=== PATIENT | male | born 1950 | race Caucasian/White ===

== ENCOUNTER 2025-07-03 16:39 | Inpatient (IN) | payer MEDICARE, BC ==
[~2025-07-03] VITALS: Ht 188 cm; Wt 67.0 kg
--- NOTE | 2025-07-03 16:55 | ELECTROCARDIOGRAPH REPORT ---
[facility] Test Date: 2025-07-03 Test Time: 16:46:23 Pat Name: ESPERANZA WAITE Department: EMERGENCY ROOM Room: Gender: M Craft Recruiter: : [id number] Requested By: JOB ESPANA Order Number: [id number] Reading MD: Measurements Intervals [place] Rate: 78 P: 0 AK: 0 QRS: 74 QRSD: 98 T: -64 QT: 374 QTc: 426 Interpretive Statements Atrial fibrillation Probable LVH with secondary repol abnrm Please click the below link to view image of tracing.
[2025-07-03 17:11] LABS: ABG BASE EXCESS -0.9 mmol/L (-2.0-3.0); ABG HCO3 22.6 mmol/L (21.0-28.0); ABG OXYGEN SATURATION 99.2 % (94.0-98.0); ABG PCO2 (T) 31.7 mmHg (35.0-48.0); ABG PH (T) 7.469 (7.350-7.450); ABG PO2 (T) 205.4 mmHg (83.0-108.0); ALLEN'S TEST POSITIVE; FCOHb 0.3 % (0.5-1.5); FHHb 0.8 % (0.0-5.0); FIO2 100.0 mmHg/%; FMetHb 0.3 % (0.0-1.5); FO2Hb 98.6 % (94.0-98.0); MODE MASK - BIPAP; PATIENT TEMPERATURE 36.3; RESPIRATORY RATE 14 b/min; TIDAL VOLUME 775 mL; TOTAL HEMOGLOBIN 8.7 G/dl (13.5-17.5)
[2025-07-03 17:16] VITALS: PULSE 72; RESP 29; O2SAT 99
[2025-07-03] MEDS: CefTRIAXone 2gm/D5W 50ml BAG 50 ML IV ONE (17:25)
--- NOTE | 2025-07-03 17:27 | RADIOLOGY REPORT ---
CHEST RADIOGRAPH Indication: respiratory failure Technique: Single frontal view of the chest was obtained COMPARISON: None FINDINGS: Right sided dialysis line with tip near the cavoatrial junction. Previous sternotomy with valve replacement. Mild bibasilar opacity with trace left-sided pleural effusion. Cardiac silhouette and sotero are within normal limits. Bones and soft tissues demonstrate no significant abnormality. IMPRESSION: Mild bibasilar opacity, nonspecific for pneumonia or aspiration. Trace left-sided mikhail fusion.
[2025-07-03 17:40] LABS: MEAN PLATELET VOLUME 10.2 FL (7.4-10.4); RED CELL DISTRIBUTION WIDTH 16.7 % (11.5-14.5)
[2025-07-03] MEDS ORDERED: NORepinephrine 8mg/ 250ml NS 250 ML IV PRN (17:55)
--- NOTE | 2025-07-03 17:56 | Physician Documentation ---
History of Present Illness ~ Chief Complaint: ALOC Stated Complaint: HYPOTENSION Time Seen by MD: 16:50 HPI 75 year old male sent by [facility]. He is recently s/p open heart surgery with valvular replacement and has been recovering at [facility], recently transferred from [facility]. He is also a dialysis patient with recently placed R chest wall dialysis port. Today he was acutely altered, hypotensive, and hypoxic and placed on CPAP. He has a history of swallowing problems and aspiration. He is responding to commands but not at his mental baseline per his family at the bedside. Medication Reconciliation Allergies: Coded Allergies: iodine (Verified Allergy, Unknown, 07/03/25) Review of Systems All Other Systems at this time: Reviewed and Negative Physical Exam Vital Signs: RN Vital Signs have been reviewed: Yes, Temperature: 97.3, Source: Temporal, Heart Rate: 75, Respiratory Rate: 18, BP: 117/51, Pulse Oximetry: 100, Weight: 67.000 Oxygen Flow Rate: 15.0 Physical Exam HEENT: PERRL, moist oral mucosa, EOMI Pulmonary: No respiratory distress; rhonchi bilaterally Cardiac: RRR, healing midline sternotomy scar GI: nondistended, soft, nontender, no guarding, no rebound MSK: no deformity Skin: pale, cool Neuro: somnolent but arousable Progress Results/Orders Results/Orders Orders - JOB ESPANA MD Cbc/Diff (07/03/25 16:50) CMP (07/03/25 16:50) Lacticsepsis (07/03/25 16:50) Urinalysis, Cult If Indicated (07/03/25 16:50) Chest,Single View (07/03/25 17:10) Abg (Arterial Blood Gas) (07/03/25 16:50) Bipap/Cpap (07/03/25 ) Completed Orders - JOB ESPANA MD Chest,Single View (07/03/25 17:10) Electrocardiogram (07/03/25 16:46) Ceftriaxone 2gm/D5w 50ml Bag (Rocephin 2 (07/03/25 17:15) Medications Received in ER Medications (Trade) Dose Ordered Sig/Alissa Route PRN Reason Start Time Stop Time Status Last Admin Dose Admin Ceftriaxone Sodium/Dextrose 50 ml @ 100 mls/hr ONCE ONCE IV 07/03/25 17:15 10/8/25 17:44 DC 07/03/25 17:25 100 MLS/HR Vital Signs 07/03/25 07/03/25 07/03/25 16:44 17:16 17:19 Temp 97.3 Pulse 75 72 75 Resp 28 29 18 29 B/P (MAP) 96/53 117/51 (73) Pulse Ox 95 99 100 O2 Flow Rate 15.0 FiO2 100 Laboratory Tests Test 07/03/25 17:05 07/03/25 17:24 Blood Gas Specimen Type Arterial Blood Gas Puncture Site Lr O2 Saturation 99.2 H Arterial Blood pH (Temp corrected) 7.469 H Arterial Blood pCO2 (Temp correct) 31.7 L Arterial Blood pO2 (Temp corrected) 205.4 H Arterial Blood PO2/FiO2 Ratio 2.09 Arterial Blood HCO3 22.6 Arterial Blood Base Excess -0.9 Arterial Blood Oxyhemoglobin 98.6 H Arterial Blood Carboxyhemoglobin 0.3 L Arterial Blood Methemoglobin 0.3 Arterial Blood Deoxyhemoglobin 0.8 Quentin Test Positive Blood Gas Hemoglobin 8.7 L Blood Gas Temperature 36.3 Blood Gas Set Respiration Rate 14 Blood Gas Modality Mask - bipap FiO2 100.0 Blood Gas Tidal Volume 775 CBC Comment Chemistry Comments EKG/XRAY/CT/US/VASC/MRI EKG : Indication: ALOC/confusion EKG Rate: 78 EKG: a fib Additional Comment my interpretation: atrial fibrillation with no STEMI criteria, no other dysrhythmia. Medical Decision Making Findings 75 year old male with hypoxia and hypotension, on CPAP by EMS. On arrival we placed him on Bipap. Spoke with family and they are currently at the bedside communicating with the patient to determine if he still wants to be DNR. He had difficulty being weaned off the ventilator after his surgery. His workup was consistent with sepsis from an EKG interpreted by me which demonstrated aspiration pneumonia vs. pneumonitis, no PTX, no cardiomegaly, and he has received antibiotics. Given his kidney failure and recent heart surgery. I have held off on significant fluid boluses. I will sign him over to the oncoming ER physician for continued management and disposition. This patient has required 60 minutes of critical care time apart from separately billable procedures for blood gas interpretation, consultation with specialists, frequent reassessment, fluid resuscitation, and blood pressure management with pressors. Differential Dx:Considerations: Include: dehydration, Delirium Tr., hypercalcemia, HHNC, hypoglycemia, hypernatremia, hyponatremia, hypoxia, CVA, drug overdose, encephalopathy, ETOH intoxication, medication toxicity, infection - sepsis, infection - UTI, renal failure, respiratory failure Departure Disposition: 30 STILL A PATIENT Impression: Primary Impression: Aspiration pneumonia Additional Impressions: Severe sepsis Respiratory failure Acute metabolic encephalopathy Condition: Critical Referrals: NO PRIMARY CARE PROVIDER (PCP) Education Educated: Family Educated regarding: diagnosis, treatment, prognosis Signature Scribe Signature: . Attestation: . JOB ESPANA MD Jul 03, 2025 17:56
[2025-07-03] MEDS: NORepinephrine 8mg/ 250ml NS 250 ML IV PRN (18:03)
[2025-07-03 18:08] LABS: CREATININE 4.10 MG/DL (0.60-1.10); TOTAL CARBON DIOXIDE 24.0 MMOL/L (24-32); eCRCL 15 ML/MIN; eGFR 14 ML/MIN
[2025-07-03] MEDS: metroNIDAZOLE-Flagyl 500mg/NS 100 ML IV STA (18:16)
[2025-07-03 19:26] LABS: ABG BASE EXCESS 0.3 mmol/L (-2.0-3.0); ABG HCO3 24.7 mmol/L (21.0-28.0); ABG OXYGEN SATURATION 97.6 % (94.0-98.0); ABG PCO2 (T) 38.7 mmHg (35.0-48.0); ABG PH (T) 7.422 (7.350-7.450); ABG PO2 (T) 98.0 mmHg (83.0-108.0); ALLEN'S TEST Modified; FCOHb 0.3 % (0.5-1.5); FHHb 2.4 % (0.0-5.0); FIO2 60.0 mmHg/%; FMetHb 0.1 % (0.0-1.5); FO2Hb 97.2 % (94.0-98.0); MODE MASK - BIPAP; PATIENT TEMPERATURE 36.9; TOTAL HEMOGLOBIN 8.1 G/dl (13.5-17.5)
[2025-07-03 20:09] VITALS: PULSE 75; RESP 18; O2SAT 98
[2025-07-03] MEDS: normal saline 1000ml 1,000 ML IV ONE ×2 (20:28→23:30)
[2025-07-03] MEDS ORDERED: vancomycin inj 1,000 MG in normal saline 250ml IV soln 250 ML IV STA (21:49)
[2025-07-03 21:59] VITALS: PULSE 75; RESP 18; O2SAT 98
[2025-07-03] MEDS ORDERED: RIVA20TA PO (22:04)
[2025-07-03] MEDS ORDERED: LOSA-415 PO (22:04)
[2025-07-03] MEDS ORDERED: ROSU20TA98 PO (22:04)
[2025-07-03] MEDS ORDERED: ESOM40CA PO (22:04)
[2025-07-03] MEDS ORDERED: FURO-150 PO (22:04)
[2025-07-03] MEDS ORDERED: LEVO125C5 PO (22:04)
[2025-07-03] MEDS ORDERED: DILT120C95 PO (22:04)
[2025-07-03] MEDS: metroNIDAZOLE-Flagyl 500mg/NS 100 ML IV ONE (22:10)
[2025-07-03] MEDS: normal saline 1000ML IV soln IVB ONE (22:15)
[2025-07-03] MEDS: atropine sulfate 1% ophthalmic drops SL PRN (22:35)
[2025-07-03] MEDS: vancomycin/NS 1 GM ADD-VANTAGE 250 ML IV STA (22:35)
[2025-07-03] MEDS ORDERED: magnesium Cl slow-release 64mg tablet PO PRN (23:40)
[2025-07-03] MEDS ORDERED: acetaminophen 650mg rectal suppository RC PRN (23:40)
[2025-07-03] MEDS ORDERED: magnesium sulf-water 2g/50mL 50 ML IV PRN (23:40)
[2025-07-03] MEDS ORDERED: potassium Cl 40MEQ/1/2NS 520ml 520 ML IV PRN (23:40)
[2025-07-03] MEDS ORDERED: ondansetron/PF 4mg/2ml inj IV PRN (23:40)
[2025-07-03] MEDS ORDERED: magnesium sulf-water 4G/100mL 100 ML IV PRN (23:40)
[2025-07-03] MEDS ORDERED: potassium Cl 20 mEq SR tablet PO PRN ×2 (23:40)
[2025-07-03] MEDS ORDERED: mag hydrox/Alum hydrox/simeth 30ml oral suspension PO PRN (23:40)
[2025-07-03] MEDS ORDERED: magnesium hydroxide 30ml (MOM) UD suspension PO PRN (23:40)
[2025-07-04] MEDS ORDERED: dextrose 50%-water 50ml dispensing syringe IV PRN ×2 (00:10)
[2025-07-04] MEDS ORDERED: glucagon, human recombinant 1mg kit SUBCUT PRN (00:10)
[2025-07-04] MEDS ORDERED: DEXTROSE 15 GM of carb/4 tabs (each vial/BOTTLE has 4 tablets) PO PRN ×2 (00:10)
--- NOTE | 2025-07-04 00:20 | HISTORY AND PHYSICAL-Residence ---
History & Physical Providers to CC Resident Creating Document: ALVAREZ FITZPATRICK RES ~ History of Present Illness Reason for Admit\Complaint: Hypoxemia, severe sepsis History of Present Illness This is a 75-year-old male patient with multiple comorbidities, including CAD, DM2, recent CABG, chronic hypoxemic respiratory failure, who was transferred from [facility] for altered mental status, lethargy, increasing oxygen requirement, and productive cough. Patient had a recent CABG and bioprosthetic aortic and mitral valve replacement complicated with FRANCIS requiring dialysis, prolonged ventilation, prolonged ICU, and was extubated on 06/15/25. He was sent to [facility] three days ago in stable condition, awake and alert. The patient was in his basal state yesterday, but today he started to develop confusion, drowsiness, shortness of breath, chills, and increased oral secretions. The patient was hypotensive and required Levophed initially. He was treated with IV fluids and antibiotics and sent here for further evaluation and management. After initial resuscitation, the patient is responsive but still disoriented, denies chest pain, gastrointestinal symptoms, or urinary symptoms. I had a long conversation with his regarding goals of care, considering age, multiple comorbidities, prolonged intubation, and end-stage renal disease. Family members wanted him to be treated medically for 12 to 24 hours. In case of no significant clinical response after this period, they might change the patient to comfort care. Allergies: Coded Allergies: iodine (Verified Allergy, Unknown, 07/03/25) Home Medications Home Medications Active Past Medical History Past Medical History Coronary artery disease s/p CABG Mitral and aortic valve replacement Chronic hypoxemic respiratory failure Stroke Atrial fibrillation Homocystinuria Type 2 diabetes mellitus History of DVT Hyperlipidemia Hypertension Past Surgical History Surgical History Comment Cholecystectomy CABG 1 month ago Total knee replacement Past Social History Smoking: Non-Smoker Alcohol Use: None Drug Use: None Lives with: Other Lives In: Assisted Care ROS All Other Systems: Reviewed and Negative Constitutional: Reports: malaise, weakness Eyes: Reports: no symptoms reported ENT: Reports: no symptoms reported Respiratory: Reports: cough, shortness of breath, SOB with exertion, SOB at rest Cardiovascular: Reports: no symptoms reported Gastrointestinal: Reports: abdomen distended, nausea, vomiting Genitourinary: Reports: no symptoms reported Male Genitalia: Reports: no symptoms reported Neurological: Reports: no symptoms reported Musculoskeletal: Reports: no symptoms reported Integumentary: Reports: no symptoms reported Allergic/Immunologic: Reports: no symptoms reported Hematologic/Lymphatic: Reports: no symptoms reported Endocrine: Reports: no symptoms reported Psychiatric: Reports: no symptoms reported Unable to obtain: altered mental status, dementia Exam Vitals: Vital Signs Date Time Temp Pulse Resp B/P (MAP) Pulse Ox O2 Delivery O2 Flow Rate FiO2 07/03/25 23:00 64 19 104/54 (71) 07/03/25 22:45 97 07/03/25 21:59 60 07/03/25 21:05 97.7 07/03/25 19:31 15.0 General: General: Drowsy, somnolent, respiratory distress noted HEENT: Conjunctiva pink, Sclera clear, Mucus Membranes dry Neck: Supple without masses and tenderness. Resp: Tachypnea and accessory muscles use. Diminished air movement, coarse crackles bilaterally, no wheezing. Heart: Irregular Rate and rhythm, normal S1, S2 and also S4 present, 2+/6+ diastolic murmur more audible in the left lower sternal border, no rub or gallop. Abdomen: Nondistended, normal bowel sounds, mildly tender to deep palpation in the epigastric region, no guarding or rebound, no organomegaly Extremities: Trace bilateral lower extremity pitting edema. No cyanosis or clubbing. Left leg scar from graft. Skin: Warm and clammy Neuro: Cranial nerve exam- normal extraocular movements, apparently normal normal facial sensations and facial movements, decreased hearing, uvula in midline Strength- decreased muscle tone, bilateral upper and lower extremity 4/5, Normal deep tendon reflexes, absent Babinski Cerebellar- finger-nose test unable to access Diagnostic Data Last Recorded Lab Results: 07/04/25 0709 07/04/25 0709 Advance Care Planning Advanced Care plannin - 30 Minutes (I had a long conversation with his regarding goals of care, considering age, multiple comorbidities, prolonged intubation, and end-stage renal disease. Family members wanted him to be treated medically for 12 to 24 hours. In case of no significant clinical response after this period, they might change the patient to comfort care.) Additional Plan Assessment 75-year-old male patient with multiple comorbidities transferred from [facility] for hypoxemia, hypotension requiring pressors and productive cough. He was weaned off Levophed and admitted to the medical floor for further management. 1. Acute hypoxemic respiratory failure as a consequence of the following causes 2. Severe sepsis secondary to aspiration pneumonia 3. Acute metabolic encephalopathy Patient presents with productive cough and hypotension requiring Levophed He was in respiratory distress and was treated with BiPAP initially Confusion, disorientation, drowsiness and somnolence started today WBC 14, procalcitonin 18.45, lactic acid 2.6 CXR: Mild bibasilar opacity, nonspecific for pneumonia or aspiration. Trace left-sided mikhail fusion. Plan Patient received 2.5 L of crystalloids and was able to wean off Levophed We will avoid more fluids given ESRD Patient received ceftriaxone, vancomycin and metronidazole in the ER Started on Zosyn renal dose Ordered blood/sputum cultures Ordered chest CT Speech therapy evaluation requested 4. Type 2 myocardial infarction 5. End-stage renal disease 6. CAD s/p CABG 7. Bioprosthetic aortic and mitral valve replacement 8. Congestive heart failure, unknown EF, not on acute exacerbation 9. Persistent atrial fibrillation 10. Type 2 diabetes mellitus Denies chest pain, reports orthopnea and stable trace lower extremity peripheral edema Prolonged ICU stay in [facility] in face of FRANCIS, pneumonia and respiratory failure Troponin 135, possibly demand ischemia BNP > 68328 Cr 4.1, BUN 45 Hemodialysis on Tuesday, and Tuesday, followed by Dr. Lee Plan Continue aspirin, statin and Coumadin, hold metoprolol in the setting of hypotension Continue hemodialysis, will need nephrology consultation Ordered A1c, placed on hyper/hypoglycemia protocol Ordered echocardiogram Continuous telemetry 11. Normocytic hypochromic anemia 12. Severe hypercalcemia 13. Severe malnutrition/hypoalbuminemia Hb 8.1, MCV 92.2, MCHC 31.7 Possibly mixed anemia of chronic disease/kidney impairment Ca 10.5, Albumin 1.9, Ca corrected for albumin 12.2 Malnutrition in the setting of prolonged hospitalization Plan Ordered iron panel Ordered ionized calcium and phosphorus Treated with IV hydration initially Continue erythropoietin Monitor closely 14. History of DVT 15. Hyperlipidemia 16. Hypertension Continue Coumadin Hold antihypertensive medications Continue statin Ordered lipid panel Code Status: DNR DVT prophylaxis: Coumadin Analgesia/sedation: Morphine Line/tube: PIV GI prophylaxis: Pantoprazole Nutrition: NPO Prognosis: Guarded Physical therapy: Ordered Disposition: Admit to PCU/telemetry. Reassess clinical response tomorrow, family might change the patient to comfort care if progressive deterioration. Resident MD attestation The above note has been reviewed and supervised by a senior resident PGY2/PGY3 Patient was seen, examined and discussed with the attending physician Date of Service: Jul 04, 2025 Billing Provider: MOON MANE MD Addendum Attestation I agree with the residents assessment and plan as below: 75 year old admitted with confusion and hypotension Plan: empiric abx for pneumonia follow cultures continue bipap continue goc discussion CCT 54 min using HIPPA compliant A/V technology ALVAREZ FITZPATRICK, RES Jul 04, 2025 00:20 MOON MANE MD Jul 04, 2025 16:30
--- NOTE | 2025-07-04 02:58 | RADIOLOGY REPORT ---
Procedure: CT CT CHEST Reason for study/Clinical History: Respiratory failure Comparison Study: DI CHEST,SINGLE VIEW on DOS: 07/03/25 TECHNIQUE: Multidetector CT of the chest was performed from the lung apices to the upper abdomen without the use of intravenous contract. Axial, coronal and sagittal multiplanar reformats were performed. Radiation Dose Information: CT Dose: CTDI volume is 17.0 mGy. Dose-length product is 670.75 mGy*cm The dose indicators for CT are the volume Computed Tomography (CT) Dose Index (CTDIvol) and the Dose Length Product (DLP), and are measured in units of mGy and mGy-cm, respectively. These indicators are not patient dose, but values generated from the CT scanner acquisition factors. The report includes radiation exposure data for exposures received during this examination. FINDINGS: Lower neck: Unremarkable. Lungs: Dense left lower lobe and posterior right lower lobe parenchymal consolidation consistent with pneumonia. Fine nodular infiltrate extends into the upper lobes where there are more discrete subcentimeter pulmonary nodules bilaterally. Heart/Vascular Structures: Cardiomegaly status post median sternotomy and expected postsurgical changes. No pericardial effusion. Atherosclerotic vascular calcifications. Lymph Nodes: No adenopathy Pleura: No pleural effusion or significant pneumothorax. Musculoskeletal: No acute osseous abnormality. Soft tissues: Normal. Upper abdomen: Multiple bilateral renal cortical cysts. Limited portions of the upper abdomen are unremarkable status post cholecystectomy. IMPRESSION: 1. Dense left lower lobe and posterior right lower lobe parenchymal consolidation, consistent with pneumonia. 2. Fine nodular infiltrate extends into the upper lobes where there are more discrete subcentimeter pulmonary nodules bilaterally. 3. Cardiomegaly status post median sternotomy. Radiation optimization: All CT scans at this facility use at least one of these dose optimization techniques: automated exposure control mA and/or kV adjustment per patient size (includes targeted exams where dose is matched to clinical indication) or iterative reconstruction.
[2025-07-04] MEDS: acetaminophen 1,000mg/100ml IV 100 ML IV ONE (03:13)
[2025-07-04] MEDS: INSULIN LISPRO 100 UNIT/ML INSULN.PEN MULTI-DOSE SQ SCH (07:00)
[2025-07-04 07:19] LABS: MEAN PLATELET VOLUME 9.5 FL (7.4-10.4); RED CELL DISTRIBUTION WIDTH 16.5 % (11.5-14.5)
[2025-07-04] MEDS: pantoprazole 40mg Tablet.DR PO SCH (07:30)
[2025-07-04] MEDS: docusate sod 100mg capsule PO SCH (07:39)
[2025-07-04] MEDS: aspirin 81mg, enteric-coated 1 TAB TABLET.DR PO SCH (07:40)
[2025-07-04] MEDS: ipratropium/albuterol 3ml nebule NEB SCH (07:44)
[2025-07-04 07:45] LABS: % IRON SATURATION 21 % (11-46)
[2025-07-04 07:50] VITALS: PULSE 60; RESP 22; O2SAT 98
[2025-07-04 07:51] VITALS: PULSE 63; RESP 20
[2025-07-04] MEDS: piperacillin/tazo 4.5gm/100ml 100 ML IV SCH (08:00)
[2025-07-04] MEDS ORDERED: warfarin 7.5mg tablet PO SCH (08:00)
[2025-07-04] MEDS: K and/or MAG REPLACEMENT MC SCH (08:00)
[2025-07-04] MEDS ORDERED: heparin, porcine 5000 units/ml vial SQ SCH (08:00)
[2025-07-04 08:04] LABS: INR 5.4 INR
[2025-07-04 08:05] LABS: CREATININE 4.47 MG/DL (0.60-1.10); LDL CHOLESTEROL 19 MG/DL (50-100); PHOSPHORUS 3.3 MG/DL (2.3-4.5); TOTAL CARBON DIOXIDE 25.2 MMOL/L (24-32); eCRCL 14 ML/MIN; eGFR 13 ML/MIN
[2025-07-04 08:22] LABS: CHOL/HDL RATIO 6.6 (0.00-4.99)
[2025-07-04] MEDS: morphine 4 MG/ML inj SYRINge IV PRN (09:55)
[2025-07-04] MEDS ORDERED: diazepam inj 5 MG/ML inj. IV PRN (10:00)
[2025-07-04] MEDS: scopolamine 1MG/72H patch 1 PATCH PATCH.TD.3 TD SCH (10:21)
--- NOTE | 2025-07-04 10:58 | PROGRESS NOTE- Residence ---
Progress Note - Resident Providers to CC Resident Creating Document: BLANCO DEAN RES ~ Antibiotic Timeout Antibiotic Ordered?: No Subjective The patient is a 75-year-old male with a history of coronary artery disease, type 2 diabetes mellitus, chronic hypoxemic respiratory failure, and a recent CABG with bioprosthetic aortic and mitral valve replacements, complicated by acute kidney injury requiring dialysis, prolonged ventilation, and a prolonged ICU stay in the outside facility. He was extubated on June 15, 2025 and discharged to [facility] in stable conditions three days ago. He was reportedly in his usual state of health until the day of admission, when he developed confusion, lethargy, shortness of breath, chills, and increased oral secretions. Upon arrival, he had been on vasopressors of support. He was treated with IV fluids, antibiotics, and supplemental oxygen, after which he became relatively stable but remained disoriented and clinically fragile. Given his multiple comorbidities, recent complicated hospital course (at outside facility), and poor overall prognosis, a lengthy goal of care meeting was held with the his (Lynn), son (Kishore Menchaca), and daughter (Ludmila Sharpe). The family initiated the discussion of comfort care. After discussing the extent of his illness, and focus on quality of life, the family expressed understanding and agreed to transition the patient to comfort care. The principles and components of comfort care, including discontinuation of life-prolonging interventions, symptoms relieves with morphine for pain, scopolamine for secretion control, and Ativan as needed for agitation were explained in details. The family verbalized understanding and wished to prioritize comfort and dignity at the end of life. The patient's code status was updated to DNR/comfort measures only, and the plan of care was shifted accordingly. Objective Vital Signs Date Time Temp Pulse Resp B/P (MAP) Pulse Ox O2 Delivery O2 Flow Rate FiO2 07/04/25 09:55 18 07/04/25 07:51 63 Nasal Cannula 5.0 07/04/25 07:50 98 40 07/04/25 06:15 07/04/25 06:15 97.7 General: On Alimta and obtunded Resp: Tachypnea and accessory muscles use. Diminished air movement, coarse crackles bilaterally, no wheezing. Heart: Irregular Rate and rhythm, normal S1, S2 and also S4 present, 2+/6+ diastolic murmur more audible in the left lower sternal border, no rub or gallop. Abdomen: Nondistended, normal bowel sounds, mildly tender to deep palpation in the epigastric region, no guarding or rebound, no organomegaly Extremities: Trace bilateral lower extremity pitting edema. No cyanosis or clubbing. Left leg scar from graft. Skin: Warm and clammy Result Diagram: 07/04/25 0709 07/04/25 0709 Coagulation Studies Laboratory Tests Test 07/04/25 07:09 Prothrombin Time 46.7 SECONDS (9.0-12.0) H INR International Normalized Ratio 5.4 INR *H Coagulation Comments Advance Care Planning Advanced Care plannin - 30 Minutes Assessment Assessment Disposition: The patient is a 75-year-old male with a history of coronary artery disease, type 2 diabetes mellitus, chronic hypoxemic respiratory failure, and a recent CABG with bioprosthetic aortic and mitral valve replacements, complicated by acute kidney injury requiring dialysis, prolonged ventilation, and a prolonged ICU stay in the outside facility. He was extubated on June 15, 2025 and discharged to [facility] in stable conditions three days ago. He was reportedly in his usual state of health until the day of admission, when he developed confusion, lethargy, shortness of breath, chills, and increased oral secretions. Upon arrival, he had been on vasopressors of support. He was treated with IV fluids, antibiotics, and supplemental oxygen, after which he became relatively stable but remained disoriented and clinically fragile. Given his multiple comorbidities, recent complicated hospital course (at outside facility), and poor overall prognosis, a lengthy goal of care meeting was held with the his (Lynn), son (Kishore Menchaca), and daughter (Ludmila Sharpe). The family initiated the discussion of comfort care. After discussing the extent of his illness, and focus on quality of life, the family expressed understanding and agreed to transition the patient to comfort care. The principles and components of comfort care, including discontinuation of life-prolonging interventions, symptoms relieves with morphine for pain, scopolamine for secretion control, and Ativan as needed for agitation were explained in details. The family verbalized understanding and wished to prioritize comfort and dignity at the end of life. The patient's code status was updated to DNR/comfort measures only, and the plan of care was shifted accordingly. [facility] Resident, PGY-3 Date of Service: Jul 04, 2025 Billing Provider: LAURA ARNOLD MD,BLANCO, RES Jul 04, 2025 10:58
[2025-07-04 13:40] VITALS: BP 89/55; PULSE 70; RESP 24; TEMP 98; O2SAT 70
[2025-07-04 13:57] VITALS: RESP 22
--- NOTE | 2025-07-06 07:42 | DISCHARGE SUMMARY-Residence ---
Discharge Summary Providers to CC Resident Creating Document: BLANCO DEANDANIEL ~ Discharge Summary Admission Diagnosis: Severe sepsis, Acute hypoxemic respiratory failure Hospital Course DATE OF ADMISSION: July 03, 2025 DATE OF DISCHARGE: July 04, 2025 Discharge Diagnosis\Comment: 1. Acute hypoxemic respiratory failure as a consequence of the following causes 2. Severe sepsis (POA) secondary to aspiration pneumonia 3. Acute metabolic encephalopathy 4. Type 2 myocardial infarction 5. End-stage renal disease 6. CAD s/p CABG 7. Bioprosthetic aortic and mitral valve replacement 8. Congestive heart failure, unknown EF, not in acute exacerbation 9. Persistent atrial fibrillation 10. Type 2 diabetes mellitus 11. Normocytic hypochromic anemia 12. Severe hypercalcemia 13. Severe malnutrition/hypoalbuminemia 14. History of DVT 15. Hyperlipidemia 16. Hypertension Operations\Procedures: None Consultants: None Complications: None Condition on DC: Discharge Summary: Late Entry Discharge Summary for 07/04/2025: The patient is a 75-year-old male with a history of coronary artery disease, type 2 diabetes mellitus, chronic hypoxemic respiratory failure, and a recent CABG with bioprosthetic aortic and mitral valve replacements, complicated by acute kidney injury requiring dialysis, prolonged ventilation, and a prolonged ICU stay in the outside facility. He was extubated on June 15, 2025 and discharged to [facility] in stable conditions three days ago. He was reportedly in his usual state of health until the day of admission, when he developed confusion, lethargy, shortness of breath, chills, and increased oral secretions. Upon arrival, he had been on vasopressors of support. He was treated with IV fluids, antibiotics, and supplemental oxygen, after which he became relatively stable but remained disoriented and clinically fragile. Given his multiple comorbidities, recent complicated hospital course (at outside facility), and poor overall prognosis, a lengthy goal of care meeting was held with the his (Lynn), son (Kishore Menchaca), and daughter (Ludmila Sharpe). The family initiated the discussion of comfort care. After discussing the extent of his illness, and focus on quality of life, the family expressed understanding and agreed to transition the patient to comfort care. The principles and components of comfort care, including discontinuation of life-prolonging interventions, symptoms relieves with morphine for pain, scopolamine for secretion control, and Ativan as needed for agitation were explained in details. The family verbalized understanding and wished to prioritize comfort and dignity at the end of life. The patient's code status was updated to DNR/comfort measures only, and the plan of care was shifted accordingly. Subsequently, he on 07/04/25 at 1623. *Problems/Diagnosis: (1) Aspiration pneumonia Status: Acute (2) Respiratory failure Status: Acute (3) Severe sepsis Status: Acute Total Time Spent on D/C: Up to 30 Minutes Date of Service: Jul 04, 2025 Billing Provider: LAURA ARNOLD MD Common Visit Codes: 66154-XVJ/OBS DISCH DAY >30min Secondary Visit Codes: 79719-ERCNOPRU CARE PLAN 30 MINUTES BLANCO DEAN, RES Jul 06, 2025 07:42 LAURA ARNOLD MD Jul 07, 2025 07:34
== END 2025-07-04 21:30 | DRG 871 ==
LOC: ER 16:39 → ED HOLD 23:46 → EDBEDREQDT 07-04 02:09 → EDBEDREQTM 07-04 02:09 → SUR 3N 07-04 13:10
PROVIDERS: ADMIT Internal Medicine; ATTEND Internal Medicine
DX: A41.9 Sepsis, unspecified organism (principal); E43 Unspecified severe protein-calorie malnutrition; J69.0 Pneumonitis due to inhalation of food and vomit; G93.41 Metabolic encephalopathy; I21.A1 Myocardial infarction type 2; N18.6 End stage renal disease; J96.01 Acute respiratory failure with hypoxia; J18.9 Pneumonia, unspecified organism; I48.19 Other persistent atrial fibrillation; Z20.822 Contact with and (suspected) exposure to COVID-19; E88.09 Other disorders of plasma-protein metabolism, not elsewhere classified; Z66 Do not resuscitate; E83.52 Hypercalcemia; R65.20 Severe sepsis without septic shock; I25.10 Atherosclerotic heart disease of native coronary artery without angina pectoris; E11.22 Type 2 diabetes mellitus with diabetic chronic kidney disease; Z95.1 Presence of aortocoronary bypass graft
CPT/HCPCS: 36415; 36600; 71045; 71250; 80053; 80061; 82330; 82728; 82803; 82948; 82977; 83036; 83540; 83550; 83605; 83735; 83880; 84100; 84145; 84443; 84484; 85018; 85025; 85610; 85651; 86885; 86900; 86901; 87040; 87811; 93005; 94640; 94660; 94760; 96365; 96367; 99285; A4615; A4620; G0378; J0131; J0696; J1815; J2060; J2270; J2919; J3373; J3490; J7030